=== PATIENT | male | born 1995 | race Caucasian/White ===

== ENCOUNTER 2018-11-08 16:28 | Inpatient (IN) | payer OTHER ==
[2018-11-08 17:45] LABS: ABNORMAL IP MESSAGE 1; ADD MAN DIFF? NO; BASOPHIL # 0.1 10^3/ul (0.0-0.1); BASOPHILS % 0.4 % (0.0-2.0); EOSINOPHILS # 0.1 10^3/ul (0.0-0.5); EOSINOPHILS % 0.4 % (0.0-7.0); HEMATOCRIT 42.7 % (42.0-52.0); HEMOGLOBIN 14.5 g/dl (14.0-18.0); LYMPHOCYTES # 2.8 10^3/ul (0.8-2.9); LYMPHOCYTES % 24.5 % (15.0-51.0); MEAN CORPUSCULAR HEMOGLOBIN 29.4 pg (29.0-33.0); MEAN CORPUSCULAR VOLUME 86.4 fl (82.0-101.0); MEAN PLATELET VOLUME 10.1 fl (7.4-10.4); MONOCYTE # 1.6 10^3/ul (0.3-0.9); MONOCYTES % 14.3 % (0.0-11.0); NEUTROPHIL # 6.9 10^3/ul (1.6-7.5); NEUTROPHILS % 60.1 % (39.0-77.0); PLATELET COUNT 306 10^3/UL (140-415); POSITIVE DIFF @See below; RED BLOOD COUNT 4.94 10^6/ul (4.70-6.10); RED CELL DISTRIBUTION WIDTH 13.2 % (11.5-14.5)
[2018-11-08 17:45] LABS: WHITE BLOOD COUNT 11.5 10^3/ul (4.8-10.8)
[2018-11-08] MEDS: SODIUM CHLORIDE 0.9% 1L BAG IV* (17:48)
[2018-11-08] MEDS: KETOROLAC 30 MG INJ IV (17:48)
[2018-11-08] MEDS: ACETAMINOPHEN 650MG/20.3ML CUP NGT (17:49)
[2018-11-08 17:51] LABS: ADD UMIC YES; UR ASCORBIC ACID NEGATIVE (NEGATIVE); UR BACTERIA FEW /HPF (NONE SEEN); UR BILIRUBIN (Dip) NEGATIVE (NEGATIVE); UR BLOOD (Dip) 1+ mg/dL (NEGATIVE); UR CLARITY SLIGHTLY CLOUDY (CLEAR); UR COLOR AMBER (YELLOW); UR GLUCOSE (Dip) NEGATIVE (NEGATIVE); UR KETONES (Dip) NEGATIVE (NEGATIVE); UR LEUKOCYTE ESTERASE (Dip) TRACE Leu/ul (NEGATIVE); UR MUCUS MANY /HPF (NONE SEEN); UR NITRITE (Dip) NEGATIVE (NEGATIVE); UR RBC 8 /HPF (0-5); UR SPECIFIC GRAVITY (Dip) 1.026 (1.003-1.030); UR TOTAL PROTEIN (Dip) 1+ mg/dl (NEGATIVE); UR UROBILINOGEN (Dip) NEGATIVE (NEGATIVE); UR WBC 19 /HPF (0-5)
[2018-11-08 18:06] LABS: INR 1.04; PARTIAL THROMBOPLASTIN TIME 34.6 Sec (23.0-35.0); PROTIME 13.7 Sec (11.9-14.9); PT RATIO 1.1
[2018-11-08 18:24] LABS: ALANINE AMINOTRANSFERASE 23 IU/L (13-69); ALBUMIN 4.6 g/dl (3.3-4.9); ALBUMIN/GLOBULIN RATIO 1.35; ALKALINE PHOSPHATASE 123 IU/L (42-121); ANION GAP 13 (5-13); ASPARTATE AMINO TRANSFERASE 17 IU/L (15-46); BILIRUBIN,INDIRECT 0.6 mg/dl (0-1.1); BILIRUBIN,TOTAL 0.6 mg/dl (0.2-1.3); BLOOD UREA NITROGEN 8 mg/dl (7-20); C-REACTIVE PROTEIN 8.5 mg/dl (0.0-0.9); CALCIUM 9.5 mg/dl (8.4-10.2); CARBON DIOXIDE 29 mmol/L (21-31); CHLORIDE 96 mmol/L (97-110); CREATININE 0.79 mg/dl (0.61-1.24); Estimated GFR > 60 mL/min (>60); GLUCOSE 100 mg/dl (70-220); POTASSIUM 4.4 mmol/L (3.5-5.1); SODIUM 138 mmol/L (135-144)
[2018-11-08 18:51] LABS: TROPONIN-I < 0.012 ng/ml (0.000-0.120)
[2018-11-08 18:55] LABS: ERYTHROCYTE SEDIMENTATION RATE 24 mm/Hr (0-15)
[2018-11-08] MEDS: CEFTRIAXONE 1 GM/50 ML (PMX) 50 ML IVPB (18:57)
[2018-11-08] MEDS ORDERED: ONDANSETRON 4 MG INJ IV (22:00)
[2018-11-08] MEDS ORDERED: ACETAMINOPHEN 325 MG TAB PO (22:00)
[2018-11-09] MEDS ORDERED: LOPERAMIDE HCL 1 MG/5 ML LIQUID (10 ML UD CUP) PO (01:00)
[2018-11-09] MEDS: ACETAMINOPHEN 325 MG TAB PO ×3 (03:29→21:32)
[2018-11-09 06:54] LABS: ADD MAN DIFF? NO
[2018-11-09 06:58] LABS: BASOPHILS % 0.5 % (0.0-2.0); EOSINOPHILS # 0.2 10^3/ul (0.0-0.5); EOSINOPHILS % 2.2 % (0.0-7.0); HEMATOCRIT 38.9 % (42.0-52.0); HEMOGLOBIN 12.8 g/dl (14.0-18.0); LYMPHOCYTES # 2.2 10^3/ul (0.8-2.9); LYMPHOCYTES % 28.6 % (15.0-51.0); MEAN CORPUSCULAR HGB CONC 32.9 g/dl (32.0-37.0); MEAN PLATELET VOLUME 10.1 fl (7.4-10.4); MONOCYTE # 1.4 10^3/ul (0.3-0.9); MONOCYTES % 18.3 % (0.0-11.0); NEUTROPHIL # 3.9 10^3/ul (1.6-7.5); NEUTROPHILS % 50.1 % (39.0-77.0); PLATELET COUNT 252 10^3/UL (140-415); RED BLOOD COUNT 4.42 10^6/ul (4.70-6.10); RED CELL DISTRIBUTION WIDTH 13.2 % (11.5-14.5)
[2018-11-09 06:58] LABS: WHITE BLOOD COUNT 7.8 10^3/ul (4.8-10.8)
[2018-11-09 07:18] LABS: ALANINE AMINOTRANSFERASE 19 IU/L (13-69); ALBUMIN 4.1 g/dl (3.3-4.9); ALBUMIN/GLOBULIN RATIO 1.46; ALKALINE PHOSPHATASE 100 IU/L (42-121); ANION GAP 14 (5-13); ASPARTATE AMINO TRANSFERASE 13 IU/L (15-46); BILIRUBIN,INDIRECT 0.6 mg/dl (0-1.1); BILIRUBIN,TOTAL 0.6 mg/dl (0.2-1.3); BLOOD UREA NITROGEN 10 mg/dl (7-20); CARBON DIOXIDE 25 mmol/L (21-31); CHLORIDE 101 mmol/L (97-110); CREATININE 0.71 mg/dl (0.61-1.24); Estimated GFR > 60 mL/min (>60); GLUCOSE 89 mg/dl (70-220); SODIUM 140 mmol/L (135-144); TOTAL PROTEIN 6.9 g/dl (6.1-8.1)
[2018-11-09] MEDS: ENOXAPARIN 40 MG/0.4 ML SYG SC (08:23)
[2018-11-09] MEDS: INFLUENZA VIRUS VACCINE 0.5 ML (DISPENSING) IM* (10:12)
[2018-11-09] MEDS: metroNIDAZOLE 500 MG TAB PO ×2 (14:27→21:56)
[2018-11-09] MEDS: SOD CHLORIDE 0.9% 1,000 ML IV (14:27)
[2018-11-09] MEDS: PIPER-TAZO 3.375 GM IV (PMX) 100 ML IVPB ×2 (14:28→21:56)
[2018-11-09] MEDS ORDERED: ONDANSETRON 4 MG INJ IV (14:30)
[2018-11-09] MEDS ORDERED: IBUPROFEN 400 MG TAB PO (14:30)
[2018-11-09] MEDS ORDERED: HYDROCODONE/APAP (5/325) TAB PO (14:30)
[2018-11-09 15:41] LABS: ERYTHROCYTE SEDIMENTATION RATE 21 mm/Hr (0-15)
[2018-11-09] MEDS: ARTIFICIAL TEARS 15 ML OPH BOTH EYES ×2 (17:02→21:07)
[2018-11-09 17:12] LABS: C-REACTIVE PROTEIN 20.8 mg/dl (0.0-0.9)
[2018-11-09] MEDS ORDERED: CEFTRIAXONE 1 GM/50 ML (PMX) 50 ML IVPB (18:00)
[2018-11-10] MEDS: SOD CHLORIDE 0.9% 1,000 ML IV ×4 (02:01→22:52)
[2018-11-10] MEDS: PIPER-TAZO 3.375 GM IV (PMX) 100 ML IVPB ×2 (05:52→13:13)
[2018-11-10] MEDS: PANTOPRAZOLE 40 MG INJ IV (05:52)
[2018-11-10] MEDS: metroNIDAZOLE 500 MG TAB PO ×3 (05:52→21:00)
[2018-11-10 06:44] LABS: ADD MAN DIFF? NO
[2018-11-10 06:59] LABS: BASOPHILS % 0.5 % (0.0-2.0); EOSINOPHILS # 0.1 10^3/ul (0.0-0.5); EOSINOPHILS % 1.6 % (0.0-7.0); HEMATOCRIT 37.7 % (42.0-52.0); HEMOGLOBIN 12.5 g/dl (14.0-18.0); LYMPHOCYTES # 2.1 10^3/ul (0.8-2.9); LYMPHOCYTES % 25.8 % (15.0-51.0); MEAN CORPUSCULAR HEMOGLOBIN 28.7 pg (29.0-33.0); MEAN CORPUSCULAR HGB CONC 33.2 g/dl (32.0-37.0); MEAN CORPUSCULAR VOLUME 86.7 fl (82.0-101.0); MEAN PLATELET VOLUME 10.6 fl (7.4-10.4); NEUTROPHIL # 4.7 10^3/ul (1.6-7.5); NEUTROPHILS % 58.9 % (39.0-77.0); PLATELET COUNT 261 10^3/UL (140-415); RED BLOOD COUNT 4.35 10^6/ul (4.70-6.10); RED CELL DISTRIBUTION WIDTH 13.1 % (11.5-14.5)
[2018-11-10 07:24] LABS: ANION GAP 15 (5-13); BLOOD UREA NITROGEN 7 mg/dl (7-20); CARBON DIOXIDE 24 mmol/L (21-31); CHLORIDE 102 mmol/L (97-110); CREATININE 0.63 mg/dl (0.61-1.24); Estimated GFR > 60 mL/min (>60); GLUCOSE 91 mg/dl (70-220); POTASSIUM 3.9 mmol/L (3.5-5.1); SODIUM 141 mmol/L (135-144)
[2018-11-10 07:47] LABS: PHOSPHORUS 3.5 mg/dl (2.5-4.9)
[2018-11-10] MEDS: ACETAMINOPHEN 325 MG TAB PO ×2 (08:38→14:51)
[2018-11-10] MEDS: ARTIFICIAL TEARS 15 ML OPH BOTH EYES ×4 (08:38→20:59)
[2018-11-10] MEDS ORDERED: IBUPROFEN 400 MG TAB PO (12:00)
[2018-11-11] MEDS ORDERED: PANTOPRAZOLE 40 MG INJ (03:48)
[2018-11-11] MEDS ORDERED: PANTOPRAZOLE (EC) 40 MG TAB PO (03:53)
[2018-11-11 05:16] LABS: ADD MAN DIFF? NO
[2018-11-11 05:34] LABS: WHITE BLOOD COUNT 9.3 10^3/ul (4.8-10.8)
[2018-11-11 05:34] LABS: BASOPHILS % 0.4 % (0.0-2.0); EOSINOPHILS # 0.1 10^3/ul (0.0-0.5); EOSINOPHILS % 1.4 % (0.0-7.0); HEMATOCRIT 37.3 % (42.0-52.0); HEMOGLOBIN 12.6 g/dl (14.0-18.0); LYMPHOCYTES # 2.2 10^3/ul (0.8-2.9); LYMPHOCYTES % 23.9 % (15.0-51.0); MEAN CORPUSCULAR HEMOGLOBIN 28.9 pg (29.0-33.0); MEAN CORPUSCULAR HGB CONC 33.8 g/dl (32.0-37.0); MEAN CORPUSCULAR VOLUME 85.6 fl (82.0-101.0); MEAN PLATELET VOLUME 10.2 fl (7.4-10.4); MONOCYTE # 1.1 10^3/ul (0.3-0.9); MONOCYTES % 11.4 % (0.0-11.0); NEUTROPHIL # 5.8 10^3/ul (1.6-7.5); NEUTROPHILS % 62.5 % (39.0-77.0); PLATELET COUNT 278 10^3/UL (140-415); RED BLOOD COUNT 4.36 10^6/ul (4.70-6.10); RED CELL DISTRIBUTION WIDTH 13.2 % (11.5-14.5)
[2018-11-11] MEDS: PANTOPRAZOLE (EC) 40 MG TAB PO (06:01)
[2018-11-11] MEDS: metroNIDAZOLE 500 MG TAB PO ×3 (06:01→21:29)
[2018-11-11 06:02] LABS: MAGNESIUM 1.9 mg/dl (1.7-2.5)
[2018-11-11 06:02] LABS: PHOSPHORUS 4.2 mg/dl (2.5-4.9)
[2018-11-11 06:37] LABS: ANION GAP 13 (5-13); BLOOD UREA NITROGEN 7 mg/dl (7-20); CARBON DIOXIDE 26 mmol/L (21-31); CHLORIDE 100 mmol/L (97-110); CREATININE 0.66 mg/dl (0.61-1.24); Estimated GFR > 60 mL/min (>60); GLUCOSE 93 mg/dl (70-220); POTASSIUM 3.9 mmol/L (3.5-5.1); SODIUM 139 mmol/L (135-144)
[2018-11-11] MEDS: SOD CHLORIDE 0.9% 1,000 ML IV ×2 (09:09→20:00)
[2018-11-11] MEDS: ARTIFICIAL TEARS 15 ML OPH BOTH EYES ×4 (09:10→20:00)
[2018-11-11 09:16] LABS: HLA B-27 NEGATIVE (NEGATIVE)
[2018-11-12] MEDS: metroNIDAZOLE 500 MG TAB PO ×2 (05:41→13:53)
[2018-11-12] MEDS: PANTOPRAZOLE (EC) 40 MG TAB PO (05:41)
[2018-11-12] MEDS: SOD CHLORIDE 0.9% 1,000 ML IV (05:42)
[2018-11-12] MEDS: ARTIFICIAL TEARS 15 ML OPH BOTH EYES ×2 (08:49→13:53)
[2018-11-12] MEDS: ACETAMINOPHEN 325 MG TAB PO (14:17)
== END 2018-11-12 15:47 | disposition home or self-care (01) | DRG 372 ==
LOC: FTE 16:28 → PP2 21:57
DX: A04.72 Enterocolitis due to Clostridium difficile, not specified as recurrent (principal); M02.362 Reiter's disease, left knee; H10.9 Unspecified conjunctivitis; M19.90 Unspecified osteoarthritis, unspecified site; E66.3 Overweight; D64.9 Anemia, unspecified; Z68.26 Body mass index [BMI] 26.0-26.9, adult
CPT/HCPCS: 36415; 71045; 73562; 80048; 80053; 81001; 83605; 83735; 84100; 84484; 85025; 85610; 85651; 85730; 86140; 86812; 87040; 87045; 87070; 87075; 87086; 87110; 87400; 87591; 90686; 93005; 96374; 96375; 99285-25